=== PATIENT | male | born 1975 | race Caucasian/White ===

== ENCOUNTER 2016-08-17 17:14 | Emergency (ER) | payer OTHER ==
[~2016-08-17] VITALS: Ht 177.8 cm; Wt 136.1 kg
[2016-08-17 17:25] VITALS: BP 147/76
--- NOTE | 2016-08-17 17:43 | NUR ---
[facility]. ETA 20-30 MINS.
== END 2016-08-17 18:11 ==
LOC: ER 17:18
DX: Z04.1 Encounter for examination and observation following transport accident (principal); I10 Essential (primary) hypertension; V89.2XXA Person injured in unspecified motor-vehicle accident, traffic, initial encounter; Y93.89 Activity, other specified; Y92.89 Other specified places as the place of occurrence of the external cause; Y99.9 Unspecified external cause status
CPT/HCPCS: A4606; Z7610

== ENCOUNTER 2020-06-10 00:30 | Emergency (ER) | payer MEDICAID, OTHER ==
[~2020-06-10] VITALS: Ht 180.3 cm; Wt 165.6 kg
--- NOTE | 2020-06-10 00:49 | NUR ---
BIBRA FOR C/O SI REQUESTING VOLUNTARY PSYCH ADMISSION, PT A, OX3, AMBULATORY. VSS. UNABLE TO PROVIDE URINE SAMPLE AT THIS TIME. PT REMAINED ON SI PRECAUTION. WILL CONT TO MONITOR
[2020-06-10 01:41] LABS: BASOPHILS % (AUTO) 0.4 % (0.0-2.0); EOSINOPHILS % (AUTO) 6.3 % (0.0-6.0); HEMATOCRIT 36 % (39-51); HEMOGLOBIN 11.6 g/dL (13.5-17.5); LYMPHOCYTES # (AUTO) 1.1 /CMM (0.8-4.8); LYMPHOCYTES % (AUTO) 10.4 % (20.0-44.0); MEAN CORPUSCULAR HGB CONC 33 g/dl (31.0-36.0); MEAN CORPUSCULAR VOLUME 85 fL (80-96); MONOCYTES # (AUTO) 0.9 /CMM (0.1-1.30); MONOCYTES % (AUTO) 8.6 % (2.0-12.0); NEUTROPHILS % (AUTO) 74.3 % (43.0-81.0); PLATELET COUNT (AUTO) 199 /CMM (150-450); RED BLOOD CELL COUNT(AUTO) 4.22 MIL/uL (4.5-6.0); WHITE BLOOD COUNT (AUTO) 10.7 K/uL (4.3-11.0)
[2020-06-10 02:00] LABS: ALBUMIN 3.2 g/dL (3.4-5.0); BILIRUBIN,DIRECT 0.2 mg/dL (0.0-0.2); BILIRUBIN,TOTAL 0.5 mg/dL (0.2-1.0); CALCIUM, SERUM 8.6 mg/dL (8.5-10.1); POTASSIUM 4.1 mmol/L (3.5-5.1); TOTAL PROTEIN, SERUM 7.5 g/dL (6.4-8.2)
[2020-06-10 06:21] LABS: BILIRUBIN,URINE NEGATIVE (NEGATIVE); COLOR,URINE YELLOW (YELLOW); LEUKOCYTE ESTERASE ,URINE NEGATIVE (NEGATIVE); NITRITE, URINE NEGATIVE (NEGATIVE); PROTEIN,URINE NEGATIVE (NEGATIVE); UGLUCOSE NEGATIVE (NEGATIVE); UROBILINOGEN,URINE 0.2 EU/dL (0.2)
--- NOTE | 2020-06-10 07:37 | NUR ---
clinical and facesheet faxed to [facility] for voluntary admission.
--- NOTE | 2020-06-10 07:38 | NUR ---
report given to am shift kaley alcantara.
[2020-06-10 08:24] LABS: BACTERIA,URINE None seen /HPF (None Seen); RBC,URINE NONE SEEN /HPF (0-2); SQUAMOUS EPITHELIAL CELL,UR Few /HPF (None Seen); WBC,URINE 0-2 /HPF (0-3)
--- NOTE | 2020-06-10 13:55 | NUR ---
[facility] ETA [id number]
--- NOTE | 2020-06-10 14:55 | NUR ---
"Course Instructor Consult: Course Instructor consult requested for suicidal ideation and homelessness. Patient is a 45 year old, white male. SW met with the patient who is currently in the emergency department. SW met with the patient to assess patients needs. Patient was alert and oriented x3. Patient presented disheveled and malodorous. Patient stated that he has been having groin pain and stated that he has trouble ambulating due to the pain. Patient stated that he has been feeling depressed and suicidal. SW discussed patients mental illness history and the patient stated he is Schizophrenic and has auditory and visual hallucinations. Patient denied any current hallucinations. Patient stated he has not been taking any psychotropic medication for his mental illness. Patient denied any history of substance use. Patient denied any thoughts of suicide and homicide. SW discussed social support with the patient stated that he did not have any social support. Patient stated that he receives social security income. SW offered homeless resources to the patient. Substance Abuse resources provided included: [facility] Substance Abuse Self-Helpline ([facility]) ; [facility] [address] [facility]. [place] [address] ; [facility] [address] [facility] [address] ; [facility] Rehabilitation [facility] [address] [facility] [id number] ; [facility] [phone] ; [facility] [address] [facility] [address] ; [facility] 906 [facility] [address] ; [facility] Substance Abuse Helpline([facility] ; [facility] ; [facility] [place]; [facility] [place]; [facility] [address]; [place] [facility]; [facility] [place]; [facility], [facility]. [place]; Alcoholics Anonymous -SFV; Cu-Rdtx-Vhxelkq ; Marijuana Anonymous -SFV; Narcotics Anonymous www.na.org; Year-round shelters: [facility] [place] [address] [place] [address] ; [facility] [address] [place] [address]; [facility] Aweogwp3645 [facility]. [facility] [address] Winter Shelters: [facility] Provider: Rachelle [facility] [place] Address: [address] [place], [address] # of Beds: 47 Population Served: [facility] 6 | [facility] Provider: Home at Last Address: [address], [address] # of Beds: 66 Population Served: [facility] [employer] [place] Provider: First to Serve Address: [address] [facility], [address] # of Beds: 56 Population Served: [facility] [place]enzo [place] Provider: [facility]. [facility] Address: [address] [facility], [address] # of Beds: 49 Population Served: [facility] 8 | [facility] Provider: First to Serve Address: [address] [facility], [address] # of Beds: 37 Population Served: [facility] Hygiene: [facility]: [address] [address] [place] ; [facility] [address] [facility] ; [facility] [address] . Food Resources: [place] [facility] at [facility]- [address] [place]; Meet Each Need with Dignity ([facility]) [address] [facility]; [facility] 7974 [facility]; [facility] [address] [place]. Mental Health resources provided: [facility] [address] [place], [place] [address] ; [facility] [address] [facility] [address], [place], [place] [id number] ; [facility] [address] [place], [place] [id number] ; [facility] [address] [place], [place] [address] Healthcare Clinics: [facility] [address] [facility], [address] [place]. [place] ; [facility] [address] [facility] [address] [place] [address]; [facility] Health [place] [address] [facility]. [place] [address] 490) [phone] Counseling--Outpatient [facility] [address] [facility], [address] [place], [place] [address] (Specializes in in-depth psychotherapy for emotional distress: anxiety, depression, interpersonal conflicts, life transitions, childhood abuse) [facility] [address] [place] [address] (Assist with solving problem marital difficulties, separation & divorce, aging parents, & grief, chronic & terminal illness) [facility] [address] [place] [address] (Deal with loss & grief, anxiety, marital difficulties) Homebound/Mental Health Services [address] [facility], [address] [place], [place] [id number] (Provide in-home mental services to people who are incapable of leaving their homes) [facility] for Needs of the Elderly Senior Service/Resource Center [address] [facility]. [place], [place] [address] Partial Hospitalization Program and Outpatient at [facility] [address] [facility] [place], [place] [id number] [facility] [address] [place], [place] [address] PSYCHIATRIC OUTPATIENT SERVICES [facility] Partial Hospitalization and Intensive Outpatient Program (Managed Care and [place] Only)[address] [address] [facility]. [facility] [phone] [facility] Partial Hospitalization and Outpatient Nyfozjl80264 [facility]. [address] [place], [place] [phone] [facility] Partial Hospitalization and Outpatient Mrgqpad3666 [facility]. [place], [place] [phone] [facility] Mental Health Center [id number] [facility]. [address] [place], [place] [phone] [facility] Partial Hospitalization and Outpatient Orunakw39087 [place], [phone] Plan: Zane ARTIS Jr arranged for the patients transfer to [facility] ([address] [place] [address]; ). Patient will be transferred to [facility] for voluntary intake. Patient signed the homeless waiver and SW placed the waiver in the patients chart."
--- NOTE | 2020-06-10 15:05 | NUR ---
[facility] NO BARIATRIC
--- NOTE | 2020-06-10 15:06 | NUR ---
YASMIN CHAPARRO NO BARIATRIC
--- NOTE | 2020-06-10 15:16 | NUR ---
[facility] CALLED FOR BARIATRIC PT TRIP NUMBER [id number] IS ETA 2000
--- NOTE | 2020-06-10 15:20 | NUR ---
CALLED [facility] [phone] NONE AVAILABLE PER JUDITH
--- NOTE | 2020-06-10 15:22 | NUR ---
CALLED [facility] [phone] STONE NO UNITS AVAIALBLE.
--- NOTE | 2020-06-10 16:00 | NUR ---
CALLED [facility] ETA IS AFTER 2100
--- NOTE | 2020-06-10 16:03 | NUR ---
CALLED [facility] [phone] LATE ETA
[2020-06-10 20:09] VITALS: BP 138/83
--- NOTE | 2020-06-10 20:15 | NUR ---
TRANSPORT AT BEDSIDE REPORT GIVEN TO EMT.
== END 2020-06-10 20:15 ==
LOC: ER 00:30
DX: R45.851 Suicidal ideations (principal); F32.9 Major depressive disorder, single episode, unspecified; F20.9 Schizophrenia, unspecified; Z59.0 Homelessness; I10 Essential (primary) hypertension
CPT/HCPCS: 36415; 80048; 80076; 80299; 80307; 80320; 81001; 85025; 87426; 99285; C9803; G0480